=== PATIENT | female | born 1965 | race African-American/Black ===

== ENCOUNTER 2017-12-15 08:33 | Emergency (ER) | payer OTHER ==
--- NOTE | 2017-12-15 09:37 | EDPHYS ---
Physician Documentation [facility] Name: Calista Valdivia Age: 51 yrs Sex: Female : 1965 Arrival Date: 12/15/2017 Time: 08:40 Bed 20 Private MD: out of town, doctor ED Physician Vini Andrews HPI: 12/15 09:02 This 51 yrs old Black Female presents to ER via Unassigned with complaints of Headache. rn 09:02 The patient complains of pain to the forehead. The patient describes the headache as rn aching. Onset: The symptoms/episode began/occurred just prior to arrival. Severity of symptoms: At its worst the pain was mild, in the emergency department the pain is unchanged. The symptoms are alleviated by nothing. the symptoms are aggravated by nothing. The patient has experienced similar episodes in the past. The patient has not recently seen a physician. Reports was employee here, worked last night, has been feeling fine, no COVARRUBIAS/vomiting/fever/cough, was called to HR this AM after her shift, fired, immediately felt tearful, mild aching headache, generalized weakness, and sadness. Takes anti-hypertensive. . 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 - Social history:: Smoking status: Patient/guardian denies using tobacco. - Family history:: not pertinent. - Hospitalizations: : No recent hospitalization is reported. ROS: 09:02 Constitutional: Negative for fever, chills, and weight loss, Eyes: Negative for injury, rn pain, redness, and discharge, Neck: Negative for injury, pain, and swelling, Cardiovascular: Negative for chest pain, palpitations, and edema, Respiratory: Negative for shortness of breath, cough, wheezing, and pleuritic chest pain, Abdomen/GI: Negative for abdominal pain, nausea, vomiting, diarrhea, and constipation, Back: Negative for injury and pain, MS/Extremity: Negative for injury and deformity, Skin: Negative for injury, rash, and discoloration, Neuro: Negative for seizure Exam: 09:02 Constitutional: This is a well developed, well nourished patient who is awake, alert, rn crying, ambulatory to room without assistance. Head/Face: Normocephalic, atraumatic. Eyes: Pupils equal round and reactive to light, extra-ocular motions intact. Lids and lashes normal. Conjunctiva and sclera are non-icteric and not injected. Cornea within normal limits. Periorbital areas with no swelling, redness, or edema. Neck: Trachea midline, no thyromegaly or masses palpated, and no cervical lymphadenopathy. Supple, full range of motion without nuchal rigidity, or vertebral point tenderness. No Meningismus. Cardiovascular: Regular rate and rhythm with a normal S1 and S2. No gallops, murmurs, or rubs. Normal PMI, no JVD. No pulse deficits. Respiratory: Lungs have equal breath sounds bilaterally, clear to auscultation and percussion. No rales, rhonchi or wheezes noted. No increased work of breathing, no retractions or nasal flaring. Abdomen/GI: Soft, non-tender, with normal bowel sounds. No distension or tympany. No guarding or rebound. No evidence of tenderness throughout. MS/ Extremity: Pulses equal, no cyanosis. Neurovascular intact. Full, normal range of motion. Equal circumference. Neuro: Awake and alert, GCS 15, oriented to person, place, time, and situation. Cranial nerves II-XII grossly intact. Motor strength 5/5 in all extremities. Sensory grossly intact. Cerebellar exam normal. Normal gait. 09:23 ECG was reviewed by the Attending Physician. rn Vital Signs: 09:00 BP 175 / 101; Pulse 89; Resp 18; Temp 98.9(TE); Pulse Ox 99% on R/A; Weight 70.31 kg; Height 5 ft. 1 in. (154.94 cm); Pain 8/10; 09:00 Body Mass Index 29.29 (70.31 kg, 154.94 cm) Trip Coma Score: 09:35 Eye Response: spontaneous(4). Verbal Response: oriented(5). Motor Response: obeys rn commands(6). Total: 15. MDM: 08:54 Patient medically screened. rn 09:22 ED course: Pt reports came in effectively to use her insurance benefits that she had rn not used yet. . 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 Data reviewed: vital signs, nurses notes, EKG, and as a result, I will discharge patient. Counseling: I had a detailed discussion with the patient and/or guardian regarding: the historical points, exam findings, and any diagnostic results supporting the discharge/admit diagnosis, the need for outpatient follow up, to return to the emergency department if symptoms worsen or persist or if there are any questions or concerns that arise at home. Special discussion: I discussed with the patient/guardian in detail that at this point there is no indication for admission to the hospital. It is understood, however, that if the symptoms persist or worsen the patient needs to return immediately for re-evaluation. 12/15 09:02 Order name: EKG; Complete Time: 09:02 rn 12/15 09:02 Order name: EKG - Nurse/Tech; Complete Time: :43 rn EC: Rate is 71 beats/min. Rhythm is regular. QRS Rumsey is Normal. RI interval is normal. QRS rn interval is normal. QT interval is normal. No Q waves. T waves are Normal. No ST changes noted. Clinical impression: Normal ECG. Interpreted by me. Administered Medications: No medications were administered Disposition: 12/15/17 09:37 Discharged to Home. Impression: Headache, Acute stress reaction. - Condition is Stable. - Discharge Instructions: Tension Headache, Hypertension. - Medication Reconciliation Form, Thank You Letter, Antibiotic Education, Prescription Opioid Use form. - Follow up: Private Physician; When: As needed; Reason: Recheck today's complaints, Re-evaluation by your physician. - Problem is new. - Symptoms have improved. Signatures: Vini Andrews MD MD rn Joaquin, Henry, RN RN hj
--- NOTE | 2017-12-15 09:37 | ER ---
Nurse's Notes [facility] Name: Calista Valdivia Age: 51 yrs Sex: Female : 1965 Arrival Date: 12/15/2017 Time: 08:40 Bed 20 Private MD: out of town, doctor Diagnosis: Headache;Acute stress reaction Presentation: 12/15 09:00 Presenting complaint: Patient states: i was let go from my current job just this hj morning, i feel so tense and i started having headache more on the back of my head; denies nausea and vomiting; reports weakness;. 09:00 Method Of Arrival: Ambulatory 09:00 Transition of care: patient was not received from another setting of care. Onset of hj symptoms was December 15, 2017. Initial Sepsis Screen: Does the patient meet any 2 criteria? No. Patient's initial sepsis screen is negative. Does the patient have a suspected source of infection? No. Patient's initial sepsis screen is negative. Care prior to arrival: None. 09:00 Acuity: SANTANA 3 hj Triage Assessment: 09:00 Headache History: Denies prior headaches. hj 09:00 General: Appears in no apparent distress. uncomfortable, Behavior is cooperative, hj appropriate for age, crying. Pain: Pain currently is 8 out of 10 on a pain scale. Pain began 4 hours ago. Also complains of no other associated symptoms. EENT: No signs and/or symptoms were reported regarding the EENT system. Neuro: Level of Consciousness is awake, alert, obeys commands, Oriented to person, place, time, situation, Appropriate for age. Cardiovascular: Capillary refill < 3 seconds Patient's skin is warm and dry. Respiratory: Airway is patent Respiratory effort is even, unlabored, Respiratory pattern is regular, symmetrical. GI: No signs and/or symptoms were reported involving the gastrointestinal system. : No signs and/or symptoms were reported regarding the genitourinary system. Derm: No signs and/or symptoms reported regarding the dermatologic system. Musculoskeletal: No signs and/or symptoms reported regarding the musculoskeletal system. 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 - Social history:: Smoking status: Patient/guardian denies using tobacco. - Family history:: not pertinent. - Hospitalizations: : No recent hospitalization is reported. Screenin:00 Abuse screen: Denies threats or abuse. Denies injuries from another. Nutritional hj screening: No deficits noted. Tuberculosis screening: No symptoms or risk factors identified. Fall Risk None identified. Vital Signs: 09:00 BP 175 / 101; Pulse 89; Resp 18; Temp 98.9(TE); Pulse Ox 99% on R/A; Weight 70.31 kg; hj Height 5 ft. 1 in. (154.94 cm); Pain 8/10; 09:00 Body Mass Index 29.29 (70.31 kg, 154.94 cm) hj Purling Coma Score: 09:35 Eye Response: spontaneous(4). Verbal Response: oriented(5). Motor Response: obeys rn commands(6). Total: 15. ED Course: 08:40 Patient arrived in ED. mr 08:40 out of town, doctor is Private Physician. mr 08:54 Vini Andrews MD is Attending Physician. rn 09:00 Patient has correct armband on for positive identification. Placed in gown. Bed in low hj position. Call light in reach. Side rails up X 1. 09:04 Hung Brock RN is Primary Nurse. hj 09:07 Triage completed. hj 09:10 Arm band placed on right wrist. hj 09:47 EKG done, by museum exhibit technician. reviewed by Vini Andrews MD. at1 10:17 No provider procedures requiring assistance completed. Patient did not have IV access hj during this emergency room visit. Administered Medications: No medications were administered Outcome: 09:37 Discharge ordered by . rn 10:17 Discharged to home ambulatory. hj 10:17 Condition: stable 10:17 Discharge instructions given to patient, Instructed on discharge instructions, follow up and referral plans. Demonstrated understanding of instructions, follow-up care, Prescriptions given X 10:18 Patient left the ED. hj Signatures: Cassandra Villalpando Vini Andrews MD MD rn gonzales, Amanda, warrant clerk EKG Tat1 Vinod, Hung, RN RN hj
--- NOTE | 2017-12-15 11:24 | EKG ---
Test Date: 2017-12-15 Test Time: 09:15:46 Clinical Engineering Manager: MARK MEASUREMENT RESULTS: Intervals: Rate: 71 NC: 156 QRSD: 74 QT: 430 QTc: 467 [place]: P: 48 NC: 156 QRS: 17 T: 29 INTERPRETIVE STATEMENTS: Normal sinus rhythm Normal ECG No previous ECG available for comparison Electronically Signed On 12-15-17 11:23:36 CDT by Lam Kate
== END 2017-12-15 10:18 | disposition home or self-care (01) ==
LOC: ER 08:33
DX: F43.0 Acute stress reaction (principal); I10 Essential (primary) hypertension; Z88.6 Allergy status to analgesic agent; Z88.8 Allergy status to other drugs, medicaments and biological substances
CPT/HCPCS: 93005; 99283